=== PATIENT | female | born 1960 | race Caucasian/White ===

== ENCOUNTER 2017-02-08 12:12 | Emergency (ER) | payer OTHER ==
[2017-02-08 12:20] VITALS: TEMP 98.6
[2017-02-08] MEDS ORDERED: ONDANSETRON 4 MG/2 ML VIAL ONE (12:37)
[2017-02-08] MEDS ORDERED: ONDANSETRON 4 MG/2 ML VIAL IVP ONE (12:40)
[2017-02-08] MEDS ORDERED: DEXAMETHASONE 10 MG/ML VIAL IVP ONE (12:49)
[2017-02-08] MEDS ORDERED: NS 1,000 ML IV ONE (12:49)
[2017-02-08] MEDS ORDERED: MIDAZOLAM 2 MG/2 ML VIAL IVP ONE (12:50)
--- NOTE | 2017-02-08 12:54 | EDPHY ---
H & P Stated Complaint: "vertigo" x 2 hours hx menierradha, vomit Time Seen by Provider: 02/08/17 12:41 HPI/ROS: CHIEF COMPLAINT: Vertigo HISTORY OF PRESENT ILLNESS: Patient is a 56-year-old female with a history of Meniere's disease, arthritis and asthma who comes to the emergency department complaining of severe vertigo that began 2 hours ago. She has had vertigo in the past but never this severe. She has vomited several times. She complains of a headache. She states that she was taken off of her Dyazide few months ago for being dehydrated although she still takes it occasionally when she has ringing in her ears. She did take a dose this morning. She has no weakness numbness or deficits. No drug or alcohol. No fever. No trauma. REVIEW OF SYSTEMS: Constitutional: denies: chills, fever, recent illness, recent injury EENTM: denies: blurred vision, double vision, nose congestion Respiratory: denies: cough, shortness of breath Cardiac: denies: chest pain, irregular heart rate, lightheadedness, palpitations Gastrointestinal/Abdominal: denies: abdominal pain, diarrhea, nausea, vomiting, blood streaked stools Genitourinary: denies: dysuria, frequency, hematuria, pain Musculoskeletal: denies: joint pain, muscle pain Skin: denies: lesions, rash, jaundice, bruising Neurological: See HPI Hematologic/Lymphatic: denies: blood clots, easy bleeding, easy bruising Immunologic/allergic: denies: HIV/AIDS, transplant EXAM: GENERAL: Well-appearing, well-nourished and in no acute distress. HEAD: Atraumatic, normocephalic. EYES: Pupils equal round and reactive to light, extraocular movements intact, sclera anicteric, conjunctiva are normal. ENT: TMs normal, nares patent, oropharynx clear without exudates. Moist mucous membranes. NECK: Normal range of motion, supple without lymphadenopathy or JVD. LUNGS: Breath sounds clear to auscultation bilaterally and equal. No wheezes rales or rhonchi. HEART: Regular rate and rhythm without murmurs, rubs or gallops. ABDOMEN: Soft, nontender, normoactive bowel sounds. No guarding, no rebound. No masses appreciated. BACK: No CVA tenderness, no spinal tenderness, step-offs or deformities EXTREMITIES: Normal range of motion, no pitting or edema. No clubbing or cyanosis. NEUROLOGICAL: NIH stroke score 0. Nystagmus with fast component to the right in both eyes. Cranial nerves II through XII grossly intact. Normal speech, normal cerebellar exam. 5/5 strength, normal movement in all extremities, normal sensation PSYCH: Normal mood, normal affect. SKIN: Warm, dry, normal turgor, no visible rashes or lesions. Source: Patient Exam Limitations: No limitations - Personal History Current Tetanus/Diphtheria Vaccine: Unsure Current Tetanus Diphtheria and Acellular Pertussis (TDAP): Unsure - Medical/Surgical History Hx Asthma: No Hx Chronic Respiratory Disease: No Hx Diabetes: No Hx Cardiac Disease: No Hx Renal Disease: No Hx Cirrhosis: No Hx Alcoholism: No Hx HIV/AIDS: No Hx Splenectomy or Spleen Trauma: No Other PMH: menieres, asthma - Family History Significant Family History: No pertinent family hx - Social History Smoking Status: Never smoked Alcohol Use: Sober Drug Use: None Constitutional: Initial Vital Signs Temperature (C) 37.0 C 02/08/17 12:18 Heart Rate 84 02/08/17 12:18 Respiratory Rate 24 H 02/08/17 12:18 Blood Pressure 148/97 H 02/08/17 12:18 O2 Sat (%) 97 02/08/17 12:18 O2 Delivery Mode Room Air O2 (L/minute) 3 Allergies/Adverse Reactions: No Known Allergies Allergy (Unverified 02/08/17 12:18) Home Medications: Medication Instructions Recorded Diamox 02/08/17 Meclizine HCl [Meclizine HCl 25 mg 25 mg PO BID PRN #20 tab 02/08/17 (RX,OTC)] Triamterene/Hctz 37.5/25 [Dyazide 1 each PO DAILY #20 cap 02/08/17 37.5/25 (*)] Medical Decision Making - Diagnostics Imaging Results: Imaging Impressions Brain MRI 02/08/17 12:50 Impression: There are a few small periventricular and deep hemispheric white matter lesions bilaterally, supratentorial. These are nonspecific and can be seen with small vessel ischemic disease, gliosis from migraine or trauma, or less likely postinfectious or postinflammatory etiology. Results called and discussed with Dr. Heber Germain on February 08, 2017 at 1456 hours. Imaging: Discussed imaging studies w/ inbound call center agent Radiologist ED Course/Re-evaluation: 3:00 p.m. the patient feels completely better. His she is eager to go home. She is relieved with the MRI results. She is asking for an ENT referral as well as a refill of seizure medications. I suspect that this is a peripheral cause. I encouraged anti-inflammatories as well. Discussed indications for returning. Differential Diagnosis: Partial list of the Differential diagnosis considered include but were not limited to; positional peripheral vertigo, vestibular neuritis, infection and although unlikely based on the history and physical exam, I also considered CVA , dissection, tumor. I discussed these differential diagnoses and the plan with the patient as well as the usual and expected course. The patient understands that the diagnosis is provisional and that in medicine we are not always correct and that further workup is often warranted. Usual and customary warnings were given. All of the patient's questions were answered. The patient was instructed to return to the emergency department should the symptoms at all worsen or return, otherwise to followup with the physician as we discussed. - Data Points Laboratory Results: Laboratory Results 02/08/17 12:25 02/08/17 12:25 02/08/17 02/08/17 02/08/17 13:29 12:25 12:25 WBC 9.48 10^3/uL 10^3/uL (3.80-9.50) RBC 5.09 10^6/uL 10^6/uL (4.18-5.33) Hgb 15.0 g/dL g/dL (12.6-16.3) Hct 42.5 % % (38.0-47.0) MCV 83.5 fL fL (81.5-99.8) MCH 29.5 pg pg (27.9-34.1) MCHC 35.3 g/dL g/dL (32.4-36.7) RDW 14.0 % % (11.5-15.2) Plt Count 353 10^3/uL 10^3/uL (150-400) MPV 10.4 fL fL (8.7-11.7) Neut % (Auto) 60.3 % % (39.3-74.2) Lymph % (Auto) 30.1 % % (15.0-45.0) Lawrence % (Auto) 6.6 % % (4.5-13.0) Eos % (Auto) 1.8 % % (0.6-7.6) Baso % (Auto) 0.8 % % (0.3-1.7) Nucleat RBC Rel Count 0.0 % % (0.0-0.2) Absolute Neuts (auto) 5.71 10^3/uL 10^3/uL (1.70-6.50) Absolute Lymphs (auto) 2.85 10^3/uL 10^3/uL (1.00-3.00) Absolute Monos (auto) 0.63 10^3/uL 10^3/uL (0.30-0.80) Absolute Eos (auto) 0.17 10^3/uL 10^3/uL (0.03-0.40) Absolute Basos (auto) 0.08 10^3/uL 10^3/uL (0.02-0.10) Absolute Nucleated RBC 0.00 10^3/uL 10^3/uL (0-0.01) Immature Gran % 0.4 % % (0.0-1.1) Immature Gran # 0.04 10^3/uL 10^3/uL (0.00-0.10) Sodium 137 mEq/L mEq/L (134-144) Potassium 3.5 mEq/L mEq/L (3.5-5.2) Chloride 102 mEq/L mEq/L (97-110) Carbon Dioxide 17 mEq/l L mEq/l (22-31) Anion Gap 18 mEq/L H mEq/L (8-16) BUN 13 mg/dL mg/dL (7-23) Creatinine 0.7 mg/dL mg/dL (0.6-1.0) Estimated GFR > 60 Glucose 153 mg/dL H mg/dL (70-100) Calcium 9.8 mg/dL mg/dL (8.5-10.4) TSH 1.030 uIU/mL uIU/mL (0.465-4.680) Free T4 1.81 ng/dL ng/dL (0.59-2.19) Medications Given: Discontinued Medications Dexamethasone (Decadron Injection) 10 mg IVP EDNOW ONE Stop: 02/08/17 12:50 Last Admin: 02/08/17 13:16 Dose: 10 mg Sodium Chloride (Ns) 1,000 mls @ 0 mls/hr IV ONCE ONE; Wide Open PRN Reason: Protocol Stop: 02/08/17 12:50 Last Admin: 02/08/17 13:23 Dose: 1,000 mls Midazolam HCl (Versed) 2.5 mg IVP EDNOW ONE Stop: 02/08/17 12:51 Last Admin: 02/08/17 13:11 Dose: 2.5 mg Ondansetron HCl (Zofran) 4 mg IVP EDNOW ONE Stop: 02/08/17 12:41 Last Admin: 02/08/17 12:41 Dose: 4 mg Departure - Departure Disposition: Home, Routine, Self-Care Clinical Impression: Vertigo Condition: Fair Instructions: Vertigo (ED) Referrals: MARIA INES SOTELO [Other] - As per Instructions Aron Greene MD [Medical Doctor] - As per Instructions Prescriptions: Meclizine HCl [Meclizine HCl 25 mg (RX,OTC)] 25 mg PO BID PRN #20 tab PRN Reason: Vertigo Triamterene/Hctz 37.5/25 [Dyazide 37.5/25 (*)] 1 each PO DAILY #20 cap
[2017-02-08] MEDS ORDERED: MECLIZINE HCL 25 MG TAB PO ONE (12:57)
[2017-02-08 12:59] LABS: % IMMATURE GRANULYOCYTES 0.4 % (0.0-1.1); ABSOLUTE IMMATURE GRANULOCYTES 0.04 10^3/uL (0.00-0.10); ADD DIFF? NO; ADD MORPH? NO; ADD SCAN? NO; ATYPICAL LYMPHOCYTE FLAG 10 (0-99); FRAGMENT RBC FLAG 0 (0-99); HEMATOCRIT 42.5 % (38.0-47.0); LEFT SHIFT FLG 0 (0-99); LIPEMIA HEMOLYSIS FLAG 90 (0-99); MEAN CELL HEMOGLOBIN 29.5 pg (27.9-34.1); MEAN CELL HEMOGLOBIN CONCENTR. 35.3 g/dL (32.4-36.7); MEAN CELL VOLUME 83.5 fL (81.5-99.8); MEAN PLATELET VOLUME 10.4 fL (8.7-11.7); PLATELET CLUMPS FLAG 0 (0-99); PLATELET COUNT 353 10^3/uL (150-400); RED BLOOD CELL COUNT 5.09 10^6/uL (4.18-5.33)
[2017-02-08 13:04] LABS: ANION GAP 18 mEq/L (8-16); CALCIUM 9.8 mg/dL (8.5-10.4); CARBON DIOXIDE 17 mEq/l (22-31); CHLORIDE 102 mEq/L (97-110); CREATININE 0.7 mg/dL (0.6-1.0); GLOMERULAR FILTRATION RATE > 60; GLUCOSE 153 mg/dL (70-100); POTASSIUM 3.5 mEq/L (3.5-5.2); SODIUM 137 mEq/L (134-144)
[2017-02-08 13:25] VITALS: RESP 18; O2SAT 100
[2017-02-08 15:31] VITALS: BP 130/76; PULSE 70
== END 2017-02-08 15:31 | disposition home or self-care (01) ==
DX: R42 Dizziness and giddiness (principal); J45.909 Unspecified asthma, uncomplicated; E86.9 Volume depletion, unspecified
CPT/HCPCS: 96374; J1100; J1200; J2250; J2405

== ENCOUNTER → 2017-03-19 | Outpatient (CLI) | payer OTHER | LOC: FIMAGING 16:06 | PROVIDERS: ATTEND Physician Assistant | DX: Z12.31 Encounter for screening mammogram for malignant neoplasm of breast (principal) | CPT/HCPCS: G0202 ==